=== PATIENT | male | born 1980 | race Caucasian/White ===

== ENCOUNTER 2020-03-30 07:00 | Emergency (ER) | payer OTHER ==
[~2020-03-30] VITALS: Ht 182.9 cm; Wt 109.0 kg
[2020-03-30] MEDS ORDERED: DIPHENHYDRAMINE 50 MG/ML, 1ML IVPush ONE (07:30)
[2020-03-30 07:35] LABS: BASOPHILS % (AUTO) 1 % (0-1); EOSINOPHILS % (AUTO) 6 % (1-7); LYMPHOCYTES % (AUTO) 31 % (22-44); MEAN CORPUSCULAR HEMOGLOBIN 28.8 pg (27.5-34.5); MEAN CORPUSCULAR HGB CONC 33.1 g/dL (33.2-36.2); MEAN PLATELET VOLUME 7.7 fL (7.4-10.4); MONOCYTES % (AUTO) 9 % (2-9); NEUTROPHILS % (AUTO) 53 % (42-75); PLATELET COUNT 238 x10^3/uL (130-400); RED BLOOD COUNT 5.17 x10^6/uL (4.38-5.82); RED CELL DISTRIBUTION WIDTH 14.3 % (9.4-14.8)
[2020-03-30 07:39] LABS: MD NO
[2020-03-30 07:44] LABS: ALBUMIN 3.9 g/dL (3.4-5.0); ANION GAP 5 mmol/L (5-15); CALCIUM 9.2 mg/dL (8.5-10.1); CHLORIDE 110 mmol/L (98-107)
[2020-03-30 07:47] LABS: CREATININE 1.32 mg/dL (0.7-1.3)
[2020-03-30 07:48] LABS: ALANINE AMINOTRANSFERASE 188 U/L (12-78); ALKALINE PHOSPHATASE 111 U/L (45-117); BILIRUBIN,TOTAL 0.6 mg/dL (0.2-1.0); CREATINE KINASE, TOTAL 197 U/L (39-308); TOTAL PROTEIN 7.6 g/dL (6.4-8.2)
[2020-03-30 08:29] LABS: AMPHETAMINE SCREEN, URINE Negative (Negative); BARBITURATE SCREEN, URINE Negative (Negative); BENZODIAZEPINE SCREEN, URINE Positive (Negative); CANNABINOID SCREEN, URINE Negative (Negative); COCAINE SCREEN, URINE Negative (Negative); METHADONE SCREEN, URINE Negative (Negative); OPIATE SCREEN, URINE Negative (Negative)
[2020-03-30 09:21] VITALS: BP 120/58
--- NOTE | 2020-03-30 10:15 | NUR ---
THROUGHPUT RN NOTE: PT TO BE DISCHARGED AND TRANSPORTED BACK TO [facility]. [facility] SITTER REMAINS WITH PATIENT AT THIS TIME. [facility] CALLED TO GIVE REPORT. PER MANUFACTURING LEAD, "NO NURSE IS AVAILABLE TO TAKE REPORT AT THIS TIME." CALLBACK NUMBER LEFT FOR STAFF TO CALL ED BACK FOR REPORT.
--- NOTE | 2020-03-30 10:39 | NUR ---
throughput RN note: packet faxed to [facility] for transport to [place], this RN spoke with [facility] staff who confirms receipt and states pt will be collected at approx 1115 this am. primary RN and MD aware.
== END 2020-03-30 12:26 ==
LOC: ED 09:49
DX: G25.71 Drug induced akathisia (principal); T78.8XXA Other adverse effects, not elsewhere classified, initial encounter; R94.5 Abnormal results of liver function studies; X58.XXXA Exposure to other specified factors, initial encounter; Y93.89 Activity, other specified; Y92.89 Other specified places as the place of occurrence of the external cause; Y99.8 Other external cause status
CPT/HCPCS: 36415; 80053; 80307; 82550; 85025; 96374; 99285; J1200; 99283

== ENCOUNTER 2020-06-14 21:33 | Emergency (ER) | payer OTHER ==
[~2020-06-14] VITALS: Ht 182.9 cm; Wt 100.0 kg
--- NOTE | 2020-06-14 21:33 | NUR ---
INITIAL PT CONTACT. BIBA C/O SEIZURE LIKE ACTIVITY. PT HAS HX OF PSEUDO-SEIZURES AND STATES "I WAS UNABLE TO COME OUT OF IT, SOMETIMES I CAN DO SOME DEEP BREATHING AND STOP MYSELF, THEY ARE NORMALLY RELATED TO ANXIETY, I HAVE VERY SEVERE ANXIETY BUT I DONT REALLY HAVE MUCH NOW. BENADRYL AND ATIVAN IV NORMALLY HELP AND STOP THIS WHEN I CANT". EMS STARTED PIV AND GAVE 5MG VERSED EN ROUTE. UPON ARRIVAL PT HAS GENERALIZED TWITCHING AND SOME UNCONTROLLED MOVEMENTS OF THE EXTREMITIES. PT ABLE TO SPEAK AND ANSWER ALL QUESTIONS OF STAFF APPROPRIATELY. SEIZURE PRECAUTIONS IN PLACE. PT DENIES ANY NEEDS AT THIS TIME. CONTINUOUS MONITORING IN PLACE. ERP AT BEDSIDE.
--- NOTE | 2020-06-14 21:45 | NUR ---
UPON FURTHER DISCUSSION WITH PT, PT STATES HE HAS RECENTLY SEEN HIS "HOLISTIC DOCTOR AND GOT A SHOT OF A BUNCH OF THINGS IN A VIAL, LIKE AT LEAST 4, THE OTHER DAY, I FELT FINE AFTER IT". PT DENIES ANY ADDITIONAL NEEDS AT THIS TIME. CALL LIGHT IN REACH. SEIZURE PRECAUTIONS IN PLACE.
[2020-06-14] MEDS ORDERED: DIPHENHYDRAMINE 50 MG/ML, 1ML ONE (21:56)
[2020-06-14] MEDS ORDERED: DIPHENHYDRAMINE 50 MG/ML, 1ML IVPush ONE (22:00)
[2020-06-14] MEDS ORDERED: SODIUM CHLORIDE FLUSH 10ML SYR IVF ONE (22:00)
[2020-06-14 22:51] LABS: BASOPHILS % (AUTO) 1 % (0-1); EOSINOPHILS % (AUTO) 4 % (1-7); LYMPHOCYTES % (AUTO) 37 % (22-44); MEAN CORPUSCULAR HEMOGLOBIN 30.4 pg (27.5-34.5); MEAN CORPUSCULAR HGB CONC 34.9 g/dL (33.2-36.2); MEAN PLATELET VOLUME 7.4 fL (7.4-10.4); MONOCYTES % (AUTO) 6 % (2-9); NEUTROPHILS % (AUTO) 51 % (42-75); PLATELET COUNT 227 x10^3/uL (130-400); RED BLOOD COUNT 5.13 x10^6/uL (4.38-5.82); RED CELL DISTRIBUTION WIDTH 15.1 % (9.4-14.8)
[2020-06-14 22:52] LABS: MD NO
[2020-06-14 22:59] LABS: ALANINE AMINOTRANSFERASE 88 U/L (12-78); ALBUMIN 3.5 g/dL (3.4-5.0); ANION GAP 9 mmol/L (5-15); CALCIUM 8.9 mg/dL (8.5-10.1); CHLORIDE 107 mmol/L (98-107); CREATININE 1.11 mg/dL (0.7-1.3)
[2020-06-14 23:02] LABS: ALKALINE PHOSPHATASE 112 U/L (45-117); BILIRUBIN,TOTAL 0.4 mg/dL (0.2-1.0); CREATINE KINASE, TOTAL 187 U/L (39-308); TOTAL PROTEIN 6.7 g/dL (6.4-8.2)
[2020-06-14 23:04] LABS: AMPHETAMINE SCREEN, URINE Positive (Negative); BARBITURATE SCREEN, URINE Negative (Negative); BENZODIAZEPINE SCREEN, URINE Positive (Negative); CANNABINOID SCREEN, URINE Positive (Negative); COCAINE SCREEN, URINE Negative (Negative); METHADONE SCREEN, URINE Negative (Negative); OPIATE SCREEN, URINE Negative (Negative)
--- NOTE | 2020-06-14 23:04 | NUR ---
PT SUPINE ON CORNELL STERLING VSS. PT RESTING COMFORTABLY WITH EYES CLOSED. GENERALIZED SHAKING STOPPED, PT STATES "I FEEL A LOT BETTER, THE BENADRYL HELPED I THINK." PT PROVIDED URINAL, SAMPLE WALKED TO LAB. AT BEDSIDE.
[2020-06-14 23:46] VITALS: BP 124/85
--- NOTE | 2020-06-14 23:50 | NUR ---
Patient given discharge instructions and they have confirmed that they understand the instructions. Patient ambulatory with steady gait, with pt upon d/c.
== END 2020-06-14 23:53 | disposition home or self-care (01) ==
LOC: ED 22:30
DX: F12.10 Cannabis abuse, uncomplicated (principal); F15.10 Other stimulant abuse, uncomplicated; G25.2 Other specified forms of tremor; Z88.5 Allergy status to narcotic agent
CPT/HCPCS: 36415; 80053; 80307; 82550; 85025; 96374; 99283; J1200